=== PATIENT | female | born 1965 | race Caucasian/White ===

== ENCOUNTER 2024-06-09 21:40 | Emergency (ER) | payer OTHER ==
[~2024-06-09] VITALS: Ht 162.6 cm; Wt 75.0 kg
[2024-06-09 21:46] VITALS: BP 131/79
[2024-06-09] MEDS ORDERED: ACETAMINOPHEN 500 MG TAB PO ONE (22:00)
[2024-06-09 22:01] VITALS: BP 119/71
[2024-06-09 22:17] VITALS: BP 113/77
[2024-06-09 23:00] VITALS: BP 112/72
[2024-06-10 00:06] VITALS: BP 112/72
== END 2024-06-10 00:10 | disposition home or self-care (01) | DRG 552 ==
LOC: ED 21:40
DX: S16.1XXA Strain of muscle, fascia and tendon at neck level, initial encounter (principal); S39.012A Strain of muscle, fascia and tendon of lower back, initial encounter; V49.40XA Driver injured in collision with unspecified motor vehicles in traffic accident, initial encounter